=== PATIENT | female | born 1985 | race Caucasian/White ===

== ENCOUNTER 2016-11-29 16:28 | Emergency (ER) | payer SELFPAY ==
--- NOTE | 2016-11-29 17:23 | CT ---
CT OF BRAIN PERFORMED WITHOUT CONTRAST ENHANCEMENT: HISTORY: The patient slipped and fell at home with head injury. FINDINGS: The ventricular and cisternal system is within normal limits. There are no signs of intracerebral h emorrhage or extraaxial fluid collections. The mastoid air cells and visualized sinuses appear mark r. IMPRESSION: No acute intracranial abnormalities. POS: [facility]
--- NOTE | 2016-11-29 17:39 | RAD ---
LEFT RING FINGER: HISTORY: Injury. FINDINGS: There appears to be a soft tissue injury of the finger. There is no underlying fracture or foreign body. IMPRESSION: No evidence of fracture. POS: [facility]
--- NOTE | 2016-11-29 17:40 | RAD ---
LEFT SHOULDER THREE VIEWS: HISTORY: Slipped and fell with shoulder pain. FINDINGS: Minimal arthritic changes of the AC joint are noted. There are no signs of fracture or dislocation. Bone rods are incidentally noted. IMPRESSION: No evidence of fracture. POS: [facility]
--- NOTE | 2016-11-29 17:58 | ERRECORD ---
[facility] EMERGENCY RECORD HPI FALL (17:04 KNGU) CHIEF COMPLAINT: Patient presents for evaluation of fall, from standing. HISTORIAN: History provided by patient, per patient, slipped a fell in bath room to L side hit back of left head/ L shoulder / and laceration to L ring finger earlier today doesn't remember if she lose consciousness with headache no nausea or vomiting. LOCATION: Symptoms are localized, most severe to L back of head L shoulder L ring finger. QUALITY: Pain is dull in nature. TIME COURSE: Sudden onset of symptoms, There has been no change in the patient's symptoms over time. SEVERITY: Maximum severity of symptoms moderate, Currently symptoms are moderate. ASSOCIATED WITH: No associated neck pain, No associated chest pain, No associated abdominal pain, No associated back pain, Associated with shoulder pain, on the left, Associated with finger pain, to the left fourth, No associated hip pain, No associated knee pain, No associated ankle pain, Associated with laceration(s), to the finger, No associated blurred vision, No associated inability to ambulate, No associated inability to bear weight, Associated with headache, No associated hematemesis, No associated hematuria, No associated hemoptysis, Associated with loss of consciousness, No associated near syncope, No associated neurological symptoms prior to arrival, No associated numbness, No associated paresthesias, No associated shortness of breath, No associated weakness distal to injury, No associated vomiting. EXACERBATED BY: Patient's condition exacerbated by nothing. RELIEVED BY: Patient's condition relieved by nothing because patient has not tried anything for relief. ROS (17:06 [facility]) CONSTITUTIONAL: Negative constitutional review of systems. EYES: Negative eye review of systems. ENT: Negative ears, nose, throat review of systems. CARDIOVASCULAR: Negative cardiovascular review of systems. RESPIRATORY: Negative respiratory review of systems. GI: Negative gastrointestinal review of systems. GENITOURINARY FEMALE: Negative genitourinary review of systems. MUSCULOSKELETAL: Historian reports injury, L shoulder / L back of head L ring finger pain. NOTES: All systems reviewed, negative except as described above. PAST MEDICAL HISTORY (16:43 JPAR) MEDICAL HISTORY: Flu vaccine not up to date, Tetanus immunization up to date, Pneumococcal vaccine not up to &a-1R&a+25V*p+0X*b7094S*c202B*c15G*c2P*p-0X&a-25V&a+1R Name: Carol Ann Pineda : 1985 F31 MedRec: [id number] AcctNum: [id number] Prepared: Joana Nov 29, 2016 18:54 by Interface Page 1 of 3 pMD [facility] EMERGENCY RECORD date. FEMALE SURGICAL HISTORY: Surgical history of orthopedic surgery, back, Surgical history of tubal ligation. SOCIAL HISTORY: Patient denies alcohol use, Patient denies drug use, Patient currently uses tobacco, smokes cigarettes, Patient smokes 1/2 packs per day. KNOWN ALLERGIES No Known Drug Allergies CURRENT MEDICATIONS (16:41 JPAR) None VITAL SIGNS VITAL SIGNS: BP: 126/77, Pulse: 105, Resp: 16, Temp: 98.3 (Oral), Pain: 9, O2 sat: 97 on Room Air, Time: 11/29/2016 16:36. (16:36 JPAR) BP: 115/69, Pulse: 89, Resp: 14, Pain: 5, O2 sat: 98, Time: 11/29/2016 17:45. (17:45 JPAR) PHYSICAL EXAM (17:07 KNGU) CONSTITUTIONAL: Vital signs reviewed, Patient afebrile, Pulse normal, Blood pressure normal, Respiratory rate normal, Patient appears non toxic, Patient appears pain free, Patient alert and oriented to person, place and time. HEAD: tenderness posterior back of head / no swelling or deformity seen no laceration. EYES: Eye exam normal. ENT: ENT exam normal. NECK: Neck exam normal. RESPIRATORY CHEST: Respiratory and chest exam normal. CARDIOVASCULAR: Cardiovascular assessment normal. UPPER EXTREMITY: Radial pulse normal, Ulnar pulse normal, capillary refill less than 2 seconds, distal motor impaired, Shoulder tenderness, left side, posterior, Hand laceration, left hand, 4th digit, on L ring finger palmar side small linear laceration 0.7 cm superficial area cleansed with saline iodine / dermabond applied no complication no foreign body seen full rom. NEURO: Neuro exam normal. DOCTOR NOTES (16:56 KNGU) TEXT: 31 yo F s/p fallen in bathroom hit back of left head/ may have loc / but doesn't remember with L shoulder pain and also L finger pain /laceration dermabond used to closed finger laceration xray ct head negative follow up with pcp as needed. &a-1R&a+25V*p+0X*c9134K*c202B*c15G*c2P*p-0X&a-25V&a+1R Name: Carol Ann Pineda : 1985 1 MedRec: [id number] AcctNum: [id number] Prepared: MonNov 29, 2016 18:54 by Interface Page 2 of 3 pMD [facility] EMERGENCY RECORD PROBLEM LIST No recorded problems DIAGNOSIS (17:36 TRISTAN) FINAL: PRIMARY: L finger laceration, ADDITIONAL: contusion. PRESCRIPTION No recorded prescriptions DISPOSITION PATIENT: Disposition Type: Discharge, Disposition: *Discharge Home. (17:36 TRISTAN) Patient left the department. (17:46 DANITZA) [place]: DANITZA=TAWNYA Shields, Elmo HUDSON=MD Dedra, Michelle &a-1R&a+25V*p+0X*i1715Q*c202B*c15G*c2P*p-0X&a-25V&a+1R Name: Carol Ann Pineda : 1985 1 MedRec: [id number] AcctNum: [id number] Prepared: MonNov 29, 2016 18:54 by Interface Page 3 of 3 pMD MTDD
--- NOTE | 2016-11-29 18:02 | PICIS ---
[facility] EMERGENCY RECORD TRIAGE (MonNov 29, 2016 16:40 JPAR) TRIAGE NOTES: Slip and fall in bathroom at home, grabbed the faucet and cut finger, L shoulder pain and headache. (MonNov 29, 2016 16:40 JPAR) PATIENT: NAME: Carol Ann Pineda, AGE: 31, GENDER: female, : Mon1985, TIME OF GREET: MonNov 29, 2016 16:29, PREFERRED LANGUAGE: Italian, ETHNICITY: or , ECODE BILLING MAP: [facility], SSN: [id number], Zip Code: [address], KG WEIGHT: 52.16, PHONE: , , , PERSON ID: [id number], PCP: Rosmery PINEDA ROLAND. (MonNov 29, 2016 16:40 JPAR) COMPLAINT: LOST FOOTING,HIT BACK HEAD,CUT TO LT RING FINGER,. (MonNov 29, 2016 16:40 JPAR) ADMISSION: URGENCY: 3 Urgent, ADMISSION SOURCE: Home, TRANSPORT: CAR, BED: TRIAGE. (MonNov 29, 2016 16:40 JPAR) ASSESSMENT: Assessment: slip and fall grabbed faucet in bathroom cutting 4th digit left hand, pain left shoulder and back of head, Symptoms began 3 hours, Symptoms began 3 hours ago. (16:43 JPAR) PAIN: Patient complains of pain described as, aching, on a scale 0-10 patient rates pain as 9. (16:43 JPAR) SIRS SCORING: Heart Rate 55-109 (0), Temp range 96.8-101.1 (0), respiratory rate 12-24 (0), Mental Status altered: no (0), Infection or Suspected Infection: No. (16:43 JPAR) TRIAGE SCREENING: Patient denies suicidal ideation, Patient denies presence of domestic violence. (16:43 JPAR) LMP: Last menstrual period: 11/29/2016. (16:43 JPAR) PROVIDERS: TRIAGE NURSE: Elmo Shields RN. (MonNov 29, 2016 16:40 JPAR) VITAL SIGNS: BP 126/77, Pulse 105, Resp 16, Temp 98.3, (Oral), Pain 9, O2 Sat 97, on Room Air, Time 11/29/2016 16:36. (16:36 JPAR) PREVIOUS VISIT ALLERGIES: No Known Drug Allergies. (MonNov 29, 2016 16:40 JPAR) No Known Drug Allergies. (16:43 JPAR) KNOWN ALLERGIES No Known Drug Allergies CURRENT MEDICATIONS (16:41 JPAR) None VITAL SIGNS VITAL SIGNS: BP: 126/77, Pulse: 105, Resp: 16, Temp: 98.3 (Oral), Pain: 9, O2 sat: 97 on Room Air, Time: 11/29/2016 16:36. (16:36 JPAR) BP: 115/69, Pulse: 89, Resp: 14, Pain: 5, O2 sat: 98, Time: 11/29/2016 17:45. (17:45 JPAR) NURSING ASSESSMENT: EXTREMITY UPPER (16:44 JPAR) CONSTITUTIONAL: Patient arrives ambulatory, Gait steady, History obtained from patient, Patient appears comfortable, Patient &a-1R&a+25V*p+0X*v5111M*c202B*c15G*c2P*p-0X&a-25V&a+1R Name: Carol Ann Pineda : 1985 F31 MedRec: [id number] AcctNum: [id number] Prepared: MonNov 29, 2016 18:54 by Interface Page 1 of 6 pMD [facility] EMERGENCY RECORD cooperative, Patient alert, Oriented to person, place and time, Skin warm, Skin dry, Skin normal in color, Mucous membranes pink, Mucous membranes moist, Patient complains of Slip and fall in bathroom while changing light. PAIN: aching pain, to the left shoulder, to the left upper arm, to the left elbow, to the left forearm, Onset of pain 3 hours, on a scale 0-10 patient rates pain as 5, multiple abraisions bruising present forearm and elbow no deformity. LEFT UPPER EXTREMITY: Left upper extremity assessment findings include capillary refill less than 2 seconds, Skin color normal to hand, Skin temperature to hand warm, Distal sensation intact, Muscle tone normal, muscle strength 4, no edema present, radial pulse is +3, brachial pulse is +3, Inspection findings include abrasion, to L FA, Inspection findings include contusion, to L FA/ Elbow, Inspection findings include signs of trauma, to L FA. SAFETY: Side rails up, Cart/Stretcher in lowest position, Call light within reach, Hospital ID band on. NURSING ASSESSMENT: FOCUSED (16:42 JPAR) PAIN: aching pain, back of head, left lower, Onset of pain 3 hours, on a scale 0-10 patient rates pain as 5. EYES: Focused eye assessment finding include pupils equally round and reactive to light, no redness, no tearing, no foreign body sensation. NEURO: Focused neuro assessment findings include patient alert, cooperative, No facial droop noted, Speech coherent, no weakness, no numbness, No loss of consciousness. GCS: Eye opening: (4) - Spontaneous, Verbal: (5) - Oriented/conversive, Motor: (6) - Obeys commands/Spontaneous, GCS Total: 15. MUSCULOSKELETAL: Focused musculoskeletal assessment findings include normal range of motion, Focused musculoskeletal assessment findings include edema, Focused musculoskeletal assessment findings include deformity, Focused musculoskeletal assessment findings include ecchymosis, Bruising to left FA and elbow. LACERATION: Focused laceration assessment findings include laceration to Left 4th digit, size (cm) 1 cm, soaked in, Hibiclense. SAFETY: Side rails up, Cart/Stretcher in lowest position, Call light within reach, Hospital ID band on. NURSING ASSESSMENT: SKIN (16:41 JPAR) CONSTITUTIONAL: Patient arrives ambulatory, Gait steady, History obtained from patient, Patient appears comfortable, Patient cooperative, Patient alert, Oriented to person, place and time, Skin warm, Skin dry, Skin normal in color, Mucous membranes pink, Mucous &a-1R&a+25V*p+0X*r7110B*c202B*c15G*c2P*p-0X&a-25V&a+1R Name: Carol Ann Pineda : 1985 F31 MedRec: [id number] AcctNum: [id number] Prepared: Joana Nov 29, 2016 18:54 by Interface Page 2 of 6 pMD [facility] EMERGENCY RECORD membranes moist, Patient complains of Laceration 4th digit L hand. PAIN: aching pain, burning pain, Onset of pain 3 hours, on a scale 0-10 patient rates pain as 5. SKIN: Skin assessment findings include skin warm, Skin dry, Skin normal in color, Inspection findings include laceration, to 4th digit, length (cm) 1 cm, bleeding controlled. SAFETY: Side rails up, Cart/Stretcher in lowest position, Family at bedside, Call light within reach, Hospital ID band on. NURSING PROCEDURE: DISCHARGE NOTE (17:42 JPAR) DISCHARGE: Patient discharged to home, ambulating without assistance, patient walking, unaccompanied, Summary of Care printed/ provided, Patient requested and was provided an electronic copy of Discharge Instructions, Transition record given to patient, Discharge instructions given to patient, Simple or moderate discharge teaching performed, Above person(s) verbalized understanding of discharge instructions and follow-up care, Patient treated and evaluated by physician. BELONGINGS: Belongings and valuables with patient at time of discharge include:, Belongings remain with patient, Valuables remain with patient. SAFETY: Side rails up, Cart/Stretcher in lowest position, Call light within reach, Hospital ID band on. NURSING PROCEDURE: NURSE NOTES (16:43 JPAR) NURSES NOTES: Patient in no apparent distress, Notes: Pt finger soaked in hibiclense and water. NURSING PROCEDURE: SPLINTING (17:35 JPAR) PATIENT IDENTIFIER: Patient actively involved in identification process, Patient's identity verified by patient stating name, Patient's identity verified by patient stating date, Patient's identity verified by hospital ID bracelet, Patient's identity verified by family member. SPLINTING: Splinting indicated for To keep pt from bending 4th digit L hand, Splint applied to, the fourth finger, on the left hand, Immobilized in extension, Large padded finger cage splint. FOLLOW-UP: After procedure, capillary refill less than 2 seconds, After procedure, distal circulation intact, After procedure, distal motor function intact, After procedure, distal sensation intact, After procedure, distal pulses present. SAFETY: Side rails up, Cart/Stretcher in lowest position, Call light within reach, Hospital ID band on. NURSING PROCEDURE: TRANSPORT TO TESTS (17:19 [facility]) TRANSPORT TO TESTS: Patient transported to CT scan, ambulatory, Accompanied by x-ray pump house technician, Patient arrived in location at 16:08, Patient departed location at 16:24. &a-1R&a+25V*p+0X*d1017P*c202B*c15G*c2P*p-0X&a-25V&a+1R Name: Carol Ann Pineda : 1985 F31 MedRec: [id number] AcctNum: [id number] Prepared: MonNov 29, 2016 18:54 by Interface Page 3 of 6 pMD [facility] EMERGENCY RECORD ORDER DETAILS Order Name: CT Brain WO Con, Status: Active, Time: 16:55 11/29/2016, User: TRISTAN, - Ordered for: MD Colmenares Kim, - Entered by: MD Colmenares Kim - Tue Nov 29, 2016 16:55, - Quantity: 1, Order Name: XR Finger(s) Lt Min 2 View, Status: Active, Time: 16:56 11/29/2016, User: TRISTAN, - Ordered for: MD Colmenares Kim, - Entered by: MD Colmenares Kim - Tue Nov 29, 2016 16:56, - Quantity: 1, Order Name: XR Shoulder Lt 3 View STANDARD, Status: Active, Time: 16:56 11/29/2016, User: TRISTAN, - Ordered for: MD Colmenares Kim, - Entered by: MD Colmenares Kim - Tue Nov 29, 2016 16:56, - Quantity: 1. HPI FALL (17:04 KN) CHIEF COMPLAINT: Patient presents for evaluation of fall, from standing. HISTORIAN: History provided by patient, per patient, slipped a fell in bath room to L side hit back of left head/ L shoulder / and laceration to L ring finger earlier today doesn't remember if she lose consciousness with headache no nausea or vomiting. LOCATION: Symptoms are localized, most severe to L back of head L shoulder L ring finger. QUALITY: Pain is dull in nature. TIME COURSE: Sudden onset of symptoms, There has been no change in the patient's symptoms over time. SEVERITY: Maximum severity of symptoms moderate, Currently symptoms are moderate. ASSOCIATED WITH: No associated neck pain, No associated chest pain, No associated abdominal pain, No associated back pain, Associated with shoulder pain, on the left, Associated with finger pain, to the left fourth, No associated hip pain, No associated knee pain, No associated ankle pain, Associated with laceration(s), to the finger, No associated blurred vision, No associated inability to ambulate, No associated inability to bear weight, Associated with headache, No associated hematemesis, No associated hematuria, No associated hemoptysis, Associated with loss of consciousness, No associated near syncope, No associated neurological symptoms prior to arrival, No associated numbness, No associated paresthesias, No associated shortness of breath, No associated weakness distal to injury, No associated vomiting. EXACERBATED BY: Patient's condition exacerbated by nothing. RELIEVED BY: Patient's condition relieved by nothing &a-1R&a+25V*p+0X*d4392U*c202B*c15G*c2P*p-0X&a-25V&a+1R Name: Carol Ann Pineda : 1985 F31 MedRec: [id number] AcctNum: [id number] Prepared: Joana Nov 29, 2016 18:54 by Interface Page 4 of 6 pMD [facility] EMERGENCY RECORD because patient has not tried anything for relief. ROS (17:06 [facility]) CONSTITUTIONAL: Negative constitutional review of systems. EYES: Negative eye review of systems. ENT: Negative ears, nose, throat review of systems. CARDIOVASCULAR: Negative cardiovascular review of systems. RESPIRATORY: Negative respiratory review of systems. GI: Negative gastrointestinal review of systems. GENITOURINARY FEMALE: Negative genitourinary review of systems. MUSCULOSKELETAL: Historian reports injury, L shoulder / L back of head L ring finger pain. NOTES: All systems reviewed, negative except as described above. PAST MEDICAL HISTORY (16:43 JPAR) MEDICAL HISTORY: Flu vaccine not up to date, Tetanus immunization up to date, Pneumococcal vaccine not up to date. FEMALE SURGICAL HISTORY: Surgical history of orthopedic surgery, back, Surgical history of tubal ligation. SOCIAL HISTORY: Patient denies alcohol use, Patient denies drug use, Patient currently uses tobacco, smokes cigarettes, Patient smokes 1/2 packs per day. PHYSICAL EXAM (17:07 [facility]) CONSTITUTIONAL: Vital signs reviewed, Patient afebrile, Pulse normal, Blood pressure normal, Respiratory rate normal, Patient appears non toxic, Patient appears pain free, Patient alert and oriented to person, place and time. HEAD: tenderness posterior back of head / no swelling or deformity seen no laceration. EYES: Eye exam normal. ENT: ENT exam normal. NECK: Neck exam normal. RESPIRATORY CHEST: Respiratory and chest exam normal. CARDIOVASCULAR: Cardiovascular assessment normal. UPPER EXTREMITY: Radial pulse normal, Ulnar pulse normal, capillary refill less than 2 seconds, distal motor impaired, Shoulder tenderness, left side, posterior, Hand laceration, left hand, 4th digit, on L ring finger palmar side small linear laceration 0.7 cm superficial area cleansed with saline iodine / dermabond applied no complication no foreign body seen full rom. NEURO: Neuro exam normal. EVENTS TRANSFER: Triage to Emergency Triage. (MonNov 29, 2016 16:40 &a-1R&a+25V*p+0X*d3559N*c202B*c15G*c2P*p-0X&a-25V&a+1R Name: Edwin Carol Ann José Miguel : 1985 F31 MedRec: [id number] AcctNum: [id number] Prepared: MonNov 29, 2016 18:54 by Interface Page 5 of 6 pMD [facility] EMERGENCY RECORD JPAR) Emergency Triage to Emergency Room -02. (16:41 JPAR) Removed from Emergency Emergency Room -02. (17:46 JPAR) DOCTOR NOTES (16:56 KNGU) TEXT: 31 yo F s/p fallen in bathroom hit back of left head/ may have loc / but doesn't remember with L shoulder pain and also L finger pain /laceration dermabond used to closed finger laceration xray ct head negative follow up with pcp as needed. PROBLEM LIST No recorded problems DIAGNOSIS (17:36 KNGU) FINAL: PRIMARY: L finger laceration, ADDITIONAL: contusion. DISPOSITION PATIENT: Disposition Type: Discharge, Disposition: *Discharge Home. (17:36 KNGU) Patient left the department. (17:46 JPAR) INSTRUCTION (17:37 KNGU) DISCHARGE: FINGER LACERATION, DERMABOND EXTREMITY LACERATION, EXTREMITY CONTUSION UPPER. FOLLOWUP: Krystal PINEDA., INDIRA, [facility], [address] [facility], ([place] [address], . SPECIAL: Tylenol or Advil for Pain Follow-up with your primary physician as needed. PRESCRIPTION No recorded prescriptions IMAGING (17:44 JPAR) *SUPPLY CHARGE SHEET: Image captured from scanner. *DISCHARGE INSTRUCTIONS RECEIPT: Image captured from scanner. ADMIN DIGITAL SIGNATURE: MD Colmenares Kim. (18:50 KNGU) MD Colmenares Kim. (18:51 KNGU) [place]: [facility]=DELMA Azevedo [place] JPAR=TAWNYA Shields Jason KNGU=MD Colmenares Kim &a-1R&a+25V*p+0X*l6747V*c202B*c15G*c2P*p-0X&a-25V&a+1R Name: Edwin Carol Ann José Miguel : 1985 F31 MedRec: [id number] AcctNum: [id number] Prepared: Joana Nov 29, 2016 18:54 by Interface Page 6 of 6 pMD MTDD
== END 2016-11-29 17:42 | disposition home or self-care (01) ==
LOC: NAV ERS 16:28
DX: S61.215A Laceration without foreign body of left ring finger without damage to nail, initial encounter (principal); F17.210 Nicotine dependence, cigarettes, uncomplicated; Z98.51 Tubal ligation status; W19.XXXA Unspecified fall, initial encounter
CPT/HCPCS: 12001; 70450

== ENCOUNTER 2018-04-23 21:06 | Emergency (ER) | payer SELFPAY | END 2018-04-23 21:35 | disposition home or self-care (01) | LOC: NAV ERS 21:06 | DX: S09.90XA Unspecified injury of head, initial encounter (principal); M41.9 Scoliosis, unspecified; Z87.891 Personal history of nicotine dependence; Y04.8XXA Assault by other bodily force, initial encounter | CPT/HCPCS: 99283 ==

== ENCOUNTER 2022-07-01 20:29 | Emergency (ER) | payer SELFPAY ==
[2022-07-01] MEDS ORDERED: traMADol HCl 50 MG TAB ONE (20:47)
== END 2022-07-01 21:11 | disposition home or self-care (01) ==
LOC: NAV ERS 20:29
DX: S90.01XA Contusion of right ankle, initial encounter (principal); Z87.891 Personal history of nicotine dependence; X58.XXXA Exposure to other specified factors, initial encounter

== ENCOUNTER 2023-09-17 23:48 | Emergency (ER) | payer BC, SELFPAY ==
[~2023-09-17 23:48] MED LIST: Iopamidol 370 76% 100 ML VIAL ONE
[2023-09-18 00:31] LABS: #Eosinphils 0.1 thou/uL (0.0-0.7); #Lymphocytes 0.9 thou/uL (1.20-3.40); #Monocytes 0.1 thou/uL (0.11-0.59); #Neutrophils 6.1 thou/uL (1.40-6.50); %Basophils 0.3 % (0.0-1.0); %Eosinophils 1.1 % (0.0-10.0); %Monocytes 1.3 % (0.0-10.0); %Neutrophils 84.3 % (42.0-75.0); Hematocrit 40.2 % (36.0-47.0); Hemoglobin 13.4 g/dL (12.0-16.0); Mean Corpuscular HGB CONC 33.4 g/dL (32.0-36.0); Mean Corpuscular Hemoglobin 31.5 pg (27.0-31.0); Mean Corpuscular Volume 94.4 fl (78.0-98.0); Mean Platelet Volume 7.1 fL (7.4-10.4); Platelet Count 280 10x3/uL (130-400); RBC Distribution Width 11.9 % (11.5-14.5); Red Blood Cell (RBC) Count 4.26 mill/uL (4.20-5.40); White Blood Cell (WBC) Count 7.2 10x3/uL (4.8-10.8)
[2023-09-18] MEDS ORDERED: Aspirin Chewable 81 MG TAB ONE (00:31)
[2023-09-18] MEDS ORDERED: Ketorolac Tromethamine 60 MG/2 ML VIAL ONE (00:32)
[2023-09-18] MEDS ORDERED: Sodium Chloride 0.9% 1,000 ML ONE (00:32)
[2023-09-18 00:46] LABS: Pregnancy Test - Urine (BHCG) Negative (Negative); Pregu Control Background? CLEAR/WHITE (CLR/WHITE); Pregu Control Bar Appear? YES (CONTROL BAR); Specific Gravity 1.014 (1.002-1.036)
[2023-09-18 00:47] LABS: Bilirubin Negative (Negative); Blood, Urine Large (Negative); Clarity Slightly Cloudy (Clear); Glucose, Urine (Dipstick) Negative (Negative); Ketone, Urine Negative (Negative); Leukocyte Small (Negative); Nitrite Negative (Negative); Protein, Urine (Dipstick) Trace mg/dL (Neg-Trace); Specific Gravity, Urine 1.015 (1.005-1.030); Urobilinogen 0.2 mg/dL (Less than 2); pH, Urine 5.5 (5.0-9.0)
[2023-09-18 00:48] LABS: Bacteria/HPF None Seen HPF (None Seen); CAUTI Indications for Culture Fever or rigors; RBC/HPF Greater than 50 HPF (0-3); Urine Culture Reflex No No; WBC/HPF None Seen HPF (0-3)
[2023-09-18 00:48] LABS: Troponin I Less than 0.010 ng/mL (< 0.028)
[2023-09-18 00:50] LABS: ALT (SGPT) 17 U/L (8-55); AST (SGOT) 19 U/L (5-34); Alkaline Phosphatase 82 U/L (40-110); Anion Gap 13 mmol/L (10-20); BUN (Urea Nitrogen) 10 mg/dL (7.0-18.7); Bilirubin, Total 0.5 mg/dL (0.2-1.2); Calc. Creatinine Clearance 0 mL/min (70-130); Calcium 8.7 mg/dL (7.8-10.44); Carbon Dioxide 21 mmol/L (22-29); Chloride 107 mmol/L (98-107); Estimated GFR 113; Globulin 2.9 g/dL (2.4-3.5); Glucose 90 mg/dL (70-105); Potassium 3.4 mmol/L (3.5-5.1); Protein, Total 6.9 g/dL (6.0-8.3); Sodium 138 mmol/L (136-145)
[2023-09-18 00:55] LABS: Amphetamine Not Detected (NotDetected); Barbiturates Screen Not Detected (NotDetected); Benzodiazepine Screen Not Detected (NotDetected); Cocaine Metabolite Screen Not Detected (NotDetected); Methadone Not Detected (NotDetected); Methamphetamine Not Detected (NotDetected); Opiate Screen Not Detected (NotDetected); Oxycodone Screen Not Detected (NotDetected); Phencyclidine (PCP) Not Detected (NotDetected); THC/Cannabinoid Screen Not Detected (NotDetected); Tricyclic Screen Not Detected (NotDetected)
[2023-09-18] MEDS ORDERED: methylPREDNISolone Sod Succ/PF 125 MG/2 ML VIAL ONE (01:19)
== END 2023-09-18 02:40 | disposition home or self-care (01) ==
LOC: NAV ERS 23:48
DX: M94.0 Chondrocostal junction syndrome [Tietze] (principal); K44.9 Diaphragmatic hernia without obstruction or gangrene; B34.9 Viral infection, unspecified; F17.290 Nicotine dependence, other tobacco product, uncomplicated; Z20.822 Contact with and (suspected) exposure to COVID-19
CPT/HCPCS: 71046; 71275; 80053; 80306; 81001; 81025; 84484; 85025; 85379; 87635; 87804; 93005; 96361; 96374; 96375; J1885; J2930; J7050; Q9967

== ENCOUNTER 2024-11-30 09:24 | Emergency (ER) | payer BC | END 2024-11-30 10:17 | disposition home or self-care (01) | LOC: NAV ERS 09:24 | DX: U07.1 COVID-19 (principal); F17.290 Nicotine dependence, other tobacco product, uncomplicated | CPT/HCPCS: 87428; 99284 ==

== ENCOUNTER 2025-09-09 19:57 | Emergency (ER) | payer BC | END 2025-09-09 21:18 | disposition home or self-care (01) | LOC: NAV ERS 19:57 | DX: J10.1 Influenza due to other identified influenza virus with other respiratory manifestations (principal); F17.210 Nicotine dependence, cigarettes, uncomplicated | CPT/HCPCS: 71046; 87428 ==